=== PATIENT | male | born 1960 | race Caucasian/White ===

== ENCOUNTER → 2022-12-14 | Outpatient (REF) | payer OTHER ==
[~2022-12-14] MED LIST: GLUC1000 OR; GLYB2.5T6 OR; NIAC500T OR; NICO21DI4 TD; PROZ20CA OR; SIMV40TA2 OR; SIMVPOW2 OR; TRIC145T19 OR; ZOCO40TA OR; [UNRECOGNIZED DRUG - OTHER] OR; vitamin B12 PO
[2022-12-14 14:37] LABS: APPEARANCE, URINE MANUAL CLEAR (CLEAR)
[2022-12-14 14:38] LABS: BILIRUBIN, URINE MANUAL NEGATIVE (NEGATIVE); BLOOD URINE MANUAL NEGATIVE (NEGATIVE); COLOR, URINE MANUAL YELLOW (YELLOW); GLUCOSE, URINE (UA) MANUAL 4+(1000 MG/DL) mg/dL (NEGATIVE); KETONE, URINE MANUAL NEGATIVE (NEGATIVE); LEUKOCYTE ESTERASE, URINE MAN NEGATIVE (NEGATIVE); NITRITE, URINE MANUAL NEGATIVE (NEGATIVE); PROTEIN, URINE MANUAL NEGATIVE (NEGATIVE); SPECIFIC GRAVITY,URINE MANUAL 1.015 (1.002-1.035); UROBILINOGEN, URINE MANUAL NORMAL (NORMAL)
== END ==
LOC: M SMT 12:53
PROVIDERS: ATTEND Physician Assistant
DX: R31.21 Asymptomatic microscopic hematuria (principal)

== ENCOUNTER 2022-12-25 22:58 | Inpatient (IN) | payer OTHER ==
[~2022-12-25] VITALS: Ht 176.5 cm; Wt 123.0 kg
[2022-12-26] VITALS (8 sets, daily range): BP systolic 95–154; BP diastolic 54–79
[2022-12-26] MEDS ORDERED: GLUCAGON INJ 1MG VIAL SC PRN ×2 (01:30→11:10)
[2022-12-26] MEDS ORDERED: DEXTROSE 50% 50ML SYRINGE IV PRN ×2 (01:30→11:10)
[2022-12-26] MEDS ORDERED: ALBUTEROL SULFATE 2.5MG/0.5ML INH NEB SOLN NEB PRN (01:30)
[2022-12-26] MEDS ORDERED: NS 1,000 ML IV SCH (01:30)
[2022-12-26] MEDS: IPRATROPIUM 0.5MG/ALBUTEROL 2.5MG INH SOL UD 3ML (DUONEB) NEB SCH ×4 (02:00→19:34)
[2022-12-26] MEDS ORDERED: FENO145T7 PO (02:08)
[2022-12-26] MEDS ORDERED: FLUO20CA22 PO (02:08)
[2022-12-26 02:17] LABS: HEMOGLOBIN 9.1 g/dl (13.5-17.5); MEAN CORPUSCULAR HEMOGLOBIN 23.8 pg (27.0-33.0); MEAN CORPUSCULAR HGB CONC 27.6 g/dl (32.0-36.5); MEAN CORPUSCULAR VOLUME 86.2 fl (80.0-96.0); RED BLOOD COUNT 3.83 10^6/uL (4.30-6.10)
[2022-12-26] MEDS ORDERED: ATEN25TA PO (02:22)
[2022-12-26] MEDS ORDERED: D 1010004 PO (02:22)
[2022-12-26] MEDS ORDERED: POTA-150 PO (02:22)
[2022-12-26] MEDS ORDERED: FOLI1TAB11 PO (02:22)
[2022-12-26] MEDS ORDERED: SYNJ1TAB PO (02:22)
[2022-12-26] MEDS ORDERED: PROM75TA2 PO (02:22)
[2022-12-26] MEDS ORDERED: LORA-674 PO (02:22)
[2022-12-26] MEDS ORDERED: MECL-136 PO (02:22)
[2022-12-26] MEDS ORDERED: OMEP1CAP73 PO (02:22)
[2022-12-26] MEDS ORDERED: MAGN400T35 PO (02:22)
[2022-12-26] MEDS ORDERED: VITMTA PO (02:22)
[2022-12-26] MEDS ORDERED: INSU100I38 INJ (02:22)
[2022-12-26] MEDS ORDERED: VENTAER INH (02:22)
[2022-12-26] MEDS ORDERED: ROSU40TA4 PO (02:22)
[2022-12-26] MEDS ORDERED: RIBO400T PO (02:22)
[2022-12-26] MEDS ORDERED: VITA-158 PO (02:22)
[2022-12-26] MEDS ORDERED: VITATAB73 PO (02:22)
[2022-12-26] MEDS ORDERED: MIRA3350 PO (02:22)
[2022-12-26] MEDS ORDERED: FERR1TAB8 PO (02:22)
[2022-12-26 02:25] LABS: INR 1.04; PROTHROMBIN TIME 13.8 SECONDS (12.5-14.5)
[2022-12-26] MEDS ORDERED: HOME MED LIST COMPLETE! XX SCH (02:25)
[2022-12-26 02:26] LABS: PARTIAL THROMBOPLASTIN TIME 28.5 SECONDS (24.8-34.2)
[2022-12-26 02:35] LABS: PLATELET COUNT, AUTOMATED 53 10^3/uL (150-450)
[2022-12-26] MEDS: LEVEMIR (INSULIN DETEMIR) 1 UNITS/0.01ML SC SCH ×2 (02:43→21:16)
[2022-12-26] MEDS: PANTOPRAZOLE 40MG VIAL IV SCH ×2 (02:43→13:15)
[2022-12-26 03:19] LABS: ALBUMIN 3.5 G/DL (3.2-5.2); ALKALINE PHOSPHATASE 44 U/L (46-116); ALT/SGPT < 9 U/L (7.0-40); AST/SGOT 18 U/L (<34); BILIRUBIN,TOTAL 0.4 MG/DL (0.3-1.2); BLOOD UREA NITROGEN 37 MG/DL (9-23); CALCIUM LEVEL 8.8 MG/DL (8.3-10.6); CARBON DIOXIDE LEVEL 26 MMOL/L (20-31); CHLORIDE LEVEL 103 MMOL/L (98-107); CREATININE FOR GFR 1.45 MG/DL (0.70-1.30); GLOMERULAR FILTRATION RATE 52.7 (>49); GLUCOSE, FASTING 189 MG/DL (74-106); POTASSIUM SERUM 4.3 MMOL/L (3.5-5.1); SODIUM LEVEL 140 MMOL/L (136-145); TOTAL PROTEIN 6.7 G/DL (5.7-8.2)
[2022-12-26] MEDS ORDERED: INSULIN LISPRO (NovoLOG) PER UNIT SC SCH ×2 (06:00→21:00)
[2022-12-26 08:36] LABS: HEMATOCRIT 32.3 % (42.0-52.0); HEMOGLOBIN 8.9 g/dl (13.5-17.5)
[2022-12-26] MEDS ORDERED: FERROUS SULFATE 325MG TAB PO SCH (09:00)
[2022-12-26] MEDS ORDERED: GLUCOSE 4GM CHEW TABLET PO PRN (11:10)
[2022-12-26] MEDS: INSULIN LISPRO (NovoLOG) PER UNIT SC SCH ×2 (13:16→17:27)
[2022-12-26 14:25] LABS: HEMATOCRIT 29.7 % (42.0-52.0); HEMOGLOBIN 8.1 g/dl (13.5-17.5)
[2022-12-26] MEDS: FENOFIBRATE 145MG TABLET (TRICOR) PO SCH (15:24)
[2022-12-26] MEDS: FOLIC ACID 1MG TAB PO SCH (15:24)
[2022-12-26] MEDS: LORATADINE 10 MG TAB PO SCH (15:24)
[2022-12-26] MEDS: FLUoxetine 20MG CAP PO SCH (15:24)
[2022-12-26] MEDS: MECLIZINE 12.5 MG TAB PO SCH ×2 (18:39→21:18)
[2022-12-26] MEDS ORDERED: FUROSEMIDE 40MG/4ML VIAL IV ONE (20:00)
[2022-12-26 20:37] LABS: HEMATOCRIT 29.5 % (42.0-52.0); HEMOGLOBIN 8.1 g/dl (13.5-17.5)
[2022-12-26] MEDS ORDERED: ROSUVASTATIN 10 MG TAB (CRESTOR) PO SCH (21:00)
[2022-12-26] MEDS ORDERED: ATENOLOL 12.5MG PER 1/2 TABLET PO SCH (21:00)
[2022-12-26] MEDS ORDERED: atenoloL 25 MG TAB PO SCH (21:00)
[2022-12-26] MEDS: MAGNESIUM OXIDE 400MG TAB (MAG-OX) PO SCH (21:14)
[2022-12-27 00:49] VITALS: BP 101/56
[2022-12-27 01:35] VITALS: BP 104/56
[2022-12-27] MEDS: IPRATROPIUM 0.5MG/ALBUTEROL 2.5MG INH SOL UD 3ML (DUONEB) NEB SCH ×3 (02:00→13:27)
[2022-12-27] MEDS: PANTOPRAZOLE 40MG VIAL IV SCH ×2 (02:29→13:09)
[2022-12-27 02:35] VITALS: BP 138/80
[2022-12-27 02:37] LABS: HEMOGLOBIN 8.6 g/dl (13.5-17.5)
[2022-12-27 06:00] VITALS: BP 130/62
[2022-12-27 06:55] LABS: BASO % 0.7 % (0.0-1.0); EOS # 0.2 10^3/uL (0.0-0.5); EOS % 3.9 % (0.0-3.0); HEMATOCRIT 30.2 % (42.0-52.0); HEMOGLOBIN 8.4 g/dl (13.5-17.5); LYMPH # 0.6 10^3/uL (1.5-5.0); LYMPH % 14.5 % (24.0-44.0); MEAN CORPUSCULAR HEMOGLOBIN 23.9 pg (27.0-33.0); MEAN CORPUSCULAR HGB CONC 27.8 g/dl (32.0-36.5); MONO # 0.4 10^3/uL (0.0-0.8); MONO % 9.8 % (2.0-8.0); NEUTROPHILS # 3.1 10^3/uL (1.5-8.5); NEUTROPHILS % 70.4 % (36.0-66.0); RED BLOOD COUNT 3.51 10^6/uL (4.30-6.10); WHITE BLOOD COUNT 4.4 10^3/uL (4.0-10.0)
[2022-12-27 06:56] LABS: PLATELET COUNT, AUTOMATED 46 10^3/uL (150-450)
[2022-12-27] MEDS ORDERED: FUROSEMIDE 40MG/4ML VIAL IV ONE (07:05)
[2022-12-27 07:20] LABS: BLOOD UREA NITROGEN 19 MG/DL (9-23); CALCIUM LEVEL 7.9 MG/DL (8.3-10.6); CARBON DIOXIDE LEVEL 29 MMOL/L (20-31); CHLORIDE LEVEL 102 MMOL/L (98-107); CREATININE FOR GFR 1.29 MG/DL (0.70-1.30); GLOMERULAR FILTRATION RATE > 60.0 (>49); GLUCOSE, FASTING 154 MG/DL (74-106); POTASSIUM SERUM 4.2 MMOL/L (3.5-5.1); SODIUM LEVEL 138 MMOL/L (136-145)
[2022-12-27] MEDS: FLUoxetine 20MG CAP PO SCH (08:33)
[2022-12-27] MEDS: MAGNESIUM OXIDE 400MG TAB (MAG-OX) PO SCH (08:34)
[2022-12-27] MEDS: LORATADINE 10 MG TAB PO SCH (08:34)
[2022-12-27] MEDS: FOLIC ACID 1MG TAB PO SCH (08:34)
[2022-12-27] MEDS: FENOFIBRATE 145MG TABLET (TRICOR) PO SCH (08:34)
[2022-12-27] MEDS: INSULIN LISPRO (NovoLOG) PER UNIT SC SCH ×2 (08:34→13:09)
[2022-12-27] MEDS: MECLIZINE 12.5 MG TAB PO SCH (08:34)
[2022-12-27] MEDS: LEVEMIR (INSULIN DETEMIR) 1 UNITS/0.01ML SC SCH (08:35)
[2022-12-27 08:40] LABS: HEMATOCRIT 31.2 % (42.0-52.0); HEMOGLOBIN 8.6 g/dl (13.5-17.5)
[2022-12-27 14:00] VITALS: BP 110/52
[2022-12-27] MEDS ORDERED: AMOX875T2 PO (19:24)
[2022-12-27] MEDS ORDERED: PROBCAP14 PO (19:24)
[2022-12-27] MEDS ORDERED: ATENOLOL 12.5MG PER 1/2 TABLET PO SCH (21:00)
== END 2022-12-27 15:52 | disposition home or self-care (01) | DRG 378 ==
LOC: ENRESERV 23:10 → M MSPAV 12-26 00:40
PROVIDERS: ADMIT Internal Medicine; ATTEND Internal Medicine Nephrology
PROC: 30233N1 Transfusion of Nonautologous Red Blood Cells into Peripheral Vein, Percutaneous Approach (ICD-10-PCS; principal; 2022-12-26)
DX: K92.1 Melena (principal); J96.11 Chronic respiratory failure with hypoxia; D62 Acute posthemorrhagic anemia; D69.6 Thrombocytopenia, unspecified; J44.9 Chronic obstructive pulmonary disease, unspecified; Z99.81 Dependence on supplemental oxygen; D69.1 Qualitative platelet defects; E11.22 Type 2 diabetes mellitus with diabetic chronic kidney disease; Z90.49 Acquired absence of other specified parts of digestive tract; Z87.891 Personal history of nicotine dependence; R04.0 Epistaxis; N18.30 Chronic kidney disease, stage 3 unspecified; Z66 Do not resuscitate; Z79.899 Other long term (current) drug therapy; Z88.6 Allergy status to analgesic agent; Z88.8 Allergy status to other drugs, medicaments and biological substances; E53.8 Deficiency of other specified B group vitamins; E55.9 Vitamin D deficiency, unspecified; E78.5 Hyperlipidemia, unspecified; I49.1 Atrial premature depolarization; E66.01 Morbid (severe) obesity due to excess calories; Z86.003 Personal history of in-situ neoplasm of oral cavity, esophagus and stomach

== ENCOUNTER 2023-03-29 06:42 | Day surgery (SDC) | payer OTHER ==
[~2023-03-29] VITALS: Ht 175.3 cm; Wt 126.6 kg
[~2023-03-29 06:42] MED LIST changes: +AMOX875T2 PO; +ATEN25TA PO; +BSS IRR 500ML/OMIDRIA 4ML IRR BAG (OR ONLY) As Ordered ONE; +CEFUROXIME 1MG/0.1ML INTRACAMERAL INJ As Ordered ONE; +CYCLOPENTOLATE 1% OPHTH SOLN 2ML BTL OS SCH; +D 1010004 PO; +FENO145T7 PO; +FERR1TAB8 PO; +FLUO20CA22 PO; +FOLI1TAB11 PO; +INSU100I38 SC; +LIDOCAINE 1% SDV 5ML VIAL As Ordered ONE; +LORA-674 PO; +MAGN400T35 PO; +MECL-136 PO; +METO50TA7 PO; +MIRA3350 PO; +OFLOXACIN 0.3 % (OCUFLOX) OPTH SOL 5ML OS SCH; +OMEP1CAP73 PO; +PHENYLEPHRINE 2.5% OPHTH SOL 2ML OS SCH; +POTA-150 PO; +PROBCAP14 PO; +PROM75TA2 PO; +PROPARACAINE 0.5% OPHTH SOL 15ML OS ONE; +RIBO400T PO; +ROSU40TA4 PO; +SYNJ1TAB PO; +TROPICAMIDE 1% OPHTH SOLN 15ML OS SCH; +VENTAER INH; +VITA-158 PO; +VITATAB73 PO; +VITMTA PO; +short acting insulin SC
[2023-03-29] MEDS ORDERED: EPINEPHrine INJ 1 MG/ML 1ML AMP As Ordered ONE (08:18)
[2023-03-29] MEDS ORDERED: TOBRADEX OPHTH OINT 3.5 GM As Ordered ONE (08:44)
[2023-03-29] MEDS ORDERED: fentaNYL 100 MCG/2 ML INJECTION As Ordered ONE (08:56)
[2023-03-29] MEDS ORDERED: MIDAZOLAM INJ 2MG/2ML VIAL As Ordered ONE (08:56)
[2023-03-29 09:05] VITALS: BP 141/81
== END 2023-03-29 10:29 | disposition home or self-care (01) ==
LOC: M SDC 06:42
PROVIDERS: ATTEND Ophthalmology
DX: H25.12 Age-related nuclear cataract, left eye (principal); I10 Essential (primary) hypertension; E78.5 Hyperlipidemia, unspecified; E11.9 Type 2 diabetes mellitus without complications; G47.30 Sleep apnea, unspecified; Z87.891 Personal history of nicotine dependence; Z79.899 Other long term (current) drug therapy; Z88.6 Allergy status to analgesic agent
CPT/HCPCS: 66984; J0171; J0697; J1097; J2250; J3010; V2632

== ENCOUNTER → 2023-08-05 | Outpatient (REF) | payer OTHER ==
[~2023-08-05] MED LIST changes: -BSS IRR 500ML/OMIDRIA 4ML IRR BAG (OR ONLY) As Ordered ONE; -CEFUROXIME 1MG/0.1ML INTRACAMERAL INJ As Ordered ONE; -CYCLOPENTOLATE 1% OPHTH SOLN 2ML BTL OS SCH; -LIDOCAINE 1% SDV 5ML VIAL As Ordered ONE; +LORA-1041 PO; -LORA-674 PO; -OFLOXACIN 0.3 % (OCUFLOX) OPTH SOL 5ML OS SCH; -PHENYLEPHRINE 2.5% OPHTH SOL 2ML OS SCH; -PROPARACAINE 0.5% OPHTH SOL 15ML OS ONE; -TROPICAMIDE 1% OPHTH SOLN 15ML OS SCH
[2023-08-05 18:56] LABS: APPEARANCE, URINE HAZY (CLEAR); BACTERIA, URINE AUTO NEGATIVE (NEGATIVE); BILIRUBIN, URINE AUTO NEGATIVE (NEGATIVE); BLOOD, URINE BLOOD NEGATIVE (NEGATIVE); COLOR, URINE YELLOW (YELLOW); GLUCOSE, URINE (UA) AUTO 3+ mg/dL (NEGATIVE); KETONE, URINE AUTO NEGATIVE (NEGATIVE); LEUKOCYTE ESTERASE, URINE AUTO NEGATIVE (NEGATIVE); NITRITE, URINE AUTO NEGATIVE (NEGATIVE); PROTEIN, URINE AUTO NEGATIVE (NEGATIVE); RBC, URINE AUTO 1 /HPF (0-3); SPECIFIC GRAVITY URINE AUTO 1.024 (1.002-1.035); SQUAMOUS EPITHELIAL CELL UR AU 2 /HPF (0-6); UROBILINOGEN, URINE AUTO 0.2 mg/dL (0.0-2.0); WBC, URINE AUTO 1 /HPF (0-3)
== END ==
LOC: M SMT 17:36
PROVIDERS: ATTEND Urology
DX: R31.29 Other microscopic hematuria (principal)

== ENCOUNTER 2023-09-08 11:31 | Emergency (ER) | payer OTHER ==
[~2023-09-08] VITALS: Ht 177.8 cm; Wt 122.9 kg
[2023-09-08 12:26] LABS: BASO % 0.3 % (0.0-1.0); EOS # 0.1 10^3/uL (0.0-0.5); EOS % 2.5 % (0.0-3.0); HEMATOCRIT 31.2 % (42.0-52.0); HEMOGLOBIN 8.5 g/dl (13.5-17.5); LYMPH # 0.7 10^3/uL (1.5-5.0); LYMPH % 20.7 % (24.0-44.0); MEAN CORPUSCULAR HEMOGLOBIN 23.8 pg (27.0-33.0); MEAN CORPUSCULAR HGB CONC 27.2 g/dl (32.0-36.5); MEAN CORPUSCULAR VOLUME 87.4 fl (80.0-96.0); MONO # 0.3 10^3/uL (0.0-0.8); MONO % 8.8 % (2.0-8.0); NEUTROPHILS # 2.4 10^3/uL (1.5-8.5); NEUTROPHILS % 66.9 % (36.0-66.0); RED BLOOD COUNT 3.57 10^6/uL (4.30-6.10); WHITE BLOOD COUNT 3.5 10^3/uL (4.0-10.0)
[2023-09-08 12:30] LABS: PLATELET COUNT, AUTOMATED 50 10^3/uL (150-450)
[2023-09-08 12:58] LABS: BLOOD UREA NITROGEN 18 MG/DL (9-23); CALCIUM LEVEL 8.4 MG/DL (8.3-10.6); CARBON DIOXIDE LEVEL 28 MMOL/L (20-31); CHLORIDE LEVEL 103 MMOL/L (98-107); CREATININE FOR GFR 1.16 MG/DL (0.70-1.30); GLOMERULAR FILTRATION RATE > 60.0 (>49); GLUCOSE, FASTING 110 MG/DL (74-106); POTASSIUM SERUM 4.4 MMOL/L (3.5-5.1); SODIUM LEVEL 140 MMOL/L (136-145)
[2023-09-08 13:33] VITALS: BP 113/61; TEMP 98.3; O2SAT 92
== END 2023-09-08 13:35 | disposition home or self-care (01) ==
LOC: M ED 11:31 → EDBD 11:31 → M ED 13:35
DX: H81.4 Vertigo of central origin (principal); E11.9 Type 2 diabetes mellitus without complications; Z85.028 Personal history of other malignant neoplasm of stomach; Z87.891 Personal history of nicotine dependence; Z88.5 Allergy status to narcotic agent; Z88.6 Allergy status to analgesic agent; Z79.52 Long term (current) use of systemic steroids; Z79.4 Long term (current) use of insulin; Z79.810 Long term (current) use of selective estrogen receptor modulators (SERMs); Z79.899 Other long term (current) drug therapy

== ENCOUNTER 2023-09-30 11:16 | Emergency (ER) | payer OTHER ==
[~2023-09-30] VITALS: Ht 175.3 cm; Wt 120.1 kg
[2023-09-30 12:46] LABS: BASO % 0.4 % (0.0-1.0); EOS # 0.1 10^3/uL (0.0-0.5); EOS % 2.9 % (0.0-3.0); HEMOGLOBIN 8.5 g/dl (13.5-17.5); LYMPH # 0.7 10^3/uL (1.5-5.0); LYMPH % 15.1 % (24.0-44.0); MEAN CORPUSCULAR HEMOGLOBIN 22.8 pg (27.0-33.0); MEAN CORPUSCULAR HGB CONC 27.4 g/dl (32.0-36.5); MEAN CORPUSCULAR VOLUME 83.3 fl (80.0-96.0); MONO # 0.4 10^3/uL (0.0-0.8); MONO % 8.1 % (2.0-8.0); NEUTROPHILS # 3.3 10^3/uL (1.5-8.5); NEUTROPHILS % 72.6 % (36.0-66.0); RED BLOOD COUNT 3.72 10^6/uL (4.30-6.10); WHITE BLOOD COUNT 4.6 10^3/uL (4.0-10.0)
[2023-09-30 12:52] LABS: PLATELET COUNT, AUTOMATED 53 10^3/uL (150-450)
[2023-09-30] MEDS ORDERED: NS 500 ML IV ONE (12:55)
[2023-09-30 12:57] LABS: INR 1.12; PROTHROMBIN TIME 14.1 SECONDS (12.5-14.5)
[2023-09-30 12:58] LABS: PARTIAL THROMBOPLASTIN TIME 33.6 SECONDS (24.8-34.2)
[2023-09-30 13:05] LABS: BLOOD UREA NITROGEN 21 MG/DL (9-23); CALCIUM LEVEL 8.4 MG/DL (8.3-10.6); CARBON DIOXIDE LEVEL 27 MMOL/L (20-31); CHLORIDE LEVEL 102 MMOL/L (98-107); CPK CREATINE PHOSPHOKINASE 22 U/L (46-171); CREATININE FOR GFR 1.15 MG/DL (0.70-1.30); GLOMERULAR FILTRATION RATE > 60.0 (>49); GLUCOSE, FASTING 127 MG/DL (74-106); MAGNESIUM LEVEL 1.8 MG/DL (1.8-2.4); POTASSIUM SERUM 4.2 MMOL/L (3.5-5.1); SODIUM LEVEL 136 MMOL/L (136-145)
[2023-09-30 13:06] LABS: CK-MB VALUE MASS < 1.0 NG/ML (<3.6); MB/CK RELATIVE INDEX 4.54 (< OR =4)
[2023-09-30 13:14] LABS: RSV AMPLIFICATION NEGATIVE (NEGATIVE)
[2023-09-30 13:57] LABS: CK-MB VALUE MASS < 1.0 NG/ML (<3.6)
[2023-09-30 13:58] LABS: CPK CREATINE PHOSPHOKINASE 21 U/L (46-171); MB/CK RELATIVE INDEX 4.76 (< OR =4)
[2023-09-30 15:44] VITALS: BP 124/79; TEMP 97.1; O2SAT 94
== END 2023-09-30 15:54 | disposition home or self-care (01) ==
LOC: EDBD 11:16 → M ED 13:31
DX: I95.9 Hypotension, unspecified (principal); R55 Syncope and collapse; E11.9 Type 2 diabetes mellitus without complications; Z86.73 Personal history of transient ischemic attack (TIA), and cerebral infarction without residual deficits; F43.10 Post-traumatic stress disorder, unspecified; Z88.6 Allergy status to analgesic agent; Z11.52 Encounter for screening for COVID-19; Z79.899 Other long term (current) drug therapy

== ENCOUNTER 2024-03-19 11:47 | Emergency (ER) | payer OTHER ==
[~2024-03-19] VITALS: Ht 175.3 cm; Wt 124.5 kg
[~2024-03-19 11:47] MED LIST changes: -ROSU40TA4 PO; +ROSU40TA63 PO
[2024-03-19 12:34] LABS: BASO % 0.2 % (0.0-1.0); EOS # 0.1 10^3/uL (0.0-0.5); EOS % 2.6 % (0.0-3.0); HEMATOCRIT 33.8 % (42.0-52.0); HEMOGLOBIN 9.2 g/dl (13.5-17.5); LYMPH # 0.6 10^3/uL (1.5-5.0); LYMPH % 14.6 % (24.0-44.0); MEAN CORPUSCULAR HEMOGLOBIN 23.6 pg (27.0-33.0); MEAN CORPUSCULAR HGB CONC 27.2 g/dl (32.0-36.5); MEAN CORPUSCULAR VOLUME 86.7 fl (80.0-96.0); MONO # 0.4 10^3/uL (0.0-0.8); MONO % 9.2 % (2.0-8.0); NEUTROPHILS # 3.1 10^3/uL (1.5-8.5); NEUTROPHILS % 72.7 % (36.0-66.0); WHITE BLOOD COUNT 4.2 10^3/uL (4.0-10.0)
[2024-03-19 12:43] LABS: PLATELET COUNT, AUTOMATED 41 10^3/uL (150-450)
[2024-03-19 13:07] LABS: BLOOD UREA NITROGEN 20 MG/DL (9-23); CALCIUM LEVEL 8.6 MG/DL (8.3-10.6); CARBON DIOXIDE LEVEL 28 MMOL/L (20-31); CHLORIDE LEVEL 104 MMOL/L (98-107); CREATININE FOR GFR 1.18 MG/DL (0.70-1.30); GLOMERULAR FILTRATION RATE > 60.0 (>49); GLUCOSE, FASTING 139 MG/DL (74-106); POTASSIUM SERUM 4.3 MMOL/L (3.5-5.1); SODIUM LEVEL 138 MMOL/L (136-145)
[2024-03-19] MEDS: NS 1,000 ML IV ONE (13:10)
[2024-03-19 14:33] LABS: CK-MB VALUE MASS < 1.0 NG/ML (<3.6); THYROID STIMULATING HORMONE 2.241 uIU/ML (0.55-4.78)
[2024-03-19 14:34] LABS: FREE T4 0.98 NG/DL (0.89-1.76)
[2024-03-19 14:41] LABS: ALBUMIN 2.9 G/DL (3.2-5.2); ALKALINE PHOSPHATASE 50 U/L (46-116); ALT/SGPT < 9 U/L (7.0-40); AST/SGOT 25 U/L (<34); BILIRUBIN,DIRECT 0.1 MG/DL (<0.4); BILIRUBIN,TOTAL 0.3 MG/DL (0.3-1.2); CPK CREATINE PHOSPHOKINASE 42 U/L (46-171); MB/CK RELATIVE INDEX 2.38 (< OR =4); TOTAL PROTEIN 6.6 G/DL (5.7-8.2)
[2024-03-19 15:30] VITALS: BP 113/57; TEMP 98.6; O2SAT 94
== END 2024-03-19 15:52 | disposition home or self-care (01) ==
LOC: M ED 11:47 → EDBD 11:47 → M ED 15:52
DX: I95.1 Orthostatic hypotension (principal); Z85.028 Personal history of other malignant neoplasm of stomach; J44.9 Chronic obstructive pulmonary disease, unspecified; E11.9 Type 2 diabetes mellitus without complications; Z87.891 Personal history of nicotine dependence; Z79.4 Long term (current) use of insulin; Z79.899 Other long term (current) drug therapy; Z88.8 Allergy status to other drugs, medicaments and biological substances; Z88.6 Allergy status to analgesic agent

== ENCOUNTER 2024-04-27 16:07 | Emergency (ER) | payer OTHER ==
[~2024-04-27] VITALS: Ht 175.3 cm; Wt 118.2 kg
[~2024-04-27 16:07] MED LIST changes: +FLUO-365 PO; -FLUO20CA22 PO
[2024-04-27 17:45] LABS: BASO % 0.5 % (0.0-1.0); EOS # 0.1 10^3/uL (0.0-0.5); EOS % 1.8 % (0.0-3.0); HEMATOCRIT 31.6 % (42.0-52.0); HEMOGLOBIN 8.5 g/dl (13.5-17.5); LYMPH # 0.5 10^3/uL (1.5-5.0); LYMPH % 12.3 % (24.0-44.0); MEAN CORPUSCULAR HEMOGLOBIN 22.6 pg (27.0-33.0); MEAN CORPUSCULAR HGB CONC 26.9 g/dl (32.0-36.5); MONO # 0.3 10^3/uL (0.0-0.8); NEUTROPHILS # 3.1 10^3/uL (1.5-8.5); NEUTROPHILS % 76.9 % (36.0-66.0); RED BLOOD COUNT 3.76 10^6/uL (4.30-6.10)
[2024-04-27 17:56] LABS: INR 1.08; PARTIAL THROMBOPLASTIN TIME 28.3 SECONDS (24.8-34.2); PROTHROMBIN TIME 13.7 SECONDS (12.5-14.5)
[2024-04-27] MEDS: NS 500 ML IV ONE (18:06)
[2024-04-27 18:09] LABS: PLATELET COUNT, AUTOMATED 36 10^3/uL (150-450)
[2024-04-27 18:13] LABS: CPK CREATINE PHOSPHOKINASE 32 U/L (46-171)
[2024-04-27 18:14] LABS: ALBUMIN 3.5 G/DL (3.2-5.2); ALKALINE PHOSPHATASE 52 U/L (46-116); ALT/SGPT < 9 U/L (7.0-40); AST/SGOT 21 U/L (<34); BILIRUBIN,DIRECT 0.2 MG/DL (<0.4); BILIRUBIN,TOTAL 0.4 MG/DL (0.3-1.2); BLOOD UREA NITROGEN 23 MG/DL (9-23); CALCIUM LEVEL 8.3 MG/DL (8.3-10.6); CARBON DIOXIDE LEVEL 31 MMOL/L (20-31); CHLORIDE LEVEL 99 MMOL/L (98-107); CK-MB VALUE MASS < 1.0 NG/ML (<3.6); CREATININE FOR GFR 1.47 MG/DL (0.70-1.30); GLOMERULAR FILTRATION RATE 51.7 (>49); GLUCOSE, FASTING 85 MG/DL (74-106); MB/CK RELATIVE INDEX 3.12 (< OR =4); POTASSIUM SERUM 4.1 MMOL/L (3.5-5.1); SODIUM LEVEL 135 MMOL/L (136-145); TOTAL PROTEIN 7.2 G/DL (5.7-8.2)
[2024-04-27 18:15] LABS: THYROID STIMULATING HORMONE 2.536 uIU/ML (0.55-4.78)
[2024-04-27 18:16] LABS: FREE T4 1.09 NG/DL (0.89-1.76)
[2024-04-27 19:09] VITALS: TEMP 97.4
[2024-04-27 19:45] VITALS: BP 114/60; O2SAT 97
[2024-04-27 20:18] LABS: CK-MB VALUE MASS < 1.0 NG/ML (<3.6)
[2024-04-27 20:20] LABS: CPK CREATINE PHOSPHOKINASE 38 U/L (46-171); MB/CK RELATIVE INDEX 2.63 (< OR =4)
== END 2024-04-27 20:50 | disposition home or self-care (01) ==
LOC: M ED 16:07
DX: I95.9 Hypotension, unspecified (principal); E86.0 Dehydration; R19.5 Other fecal abnormalities; I48.91 Unspecified atrial fibrillation; E11.9 Type 2 diabetes mellitus without complications; F43.10 Post-traumatic stress disorder, unspecified; Z86.73 Personal history of transient ischemic attack (TIA), and cerebral infarction without residual deficits; E55.9 Vitamin D deficiency, unspecified; D69.1 Qualitative platelet defects; Z79.4 Long term (current) use of insulin; Z79.899 Other long term (current) drug therapy; Z88.6 Allergy status to analgesic agent; Z88.8 Allergy status to other drugs, medicaments and biological substances

== ENCOUNTER 2025-01-16 11:10 | Emergency (ER) | payer OTHER ==
[~2025-01-16] VITALS: Ht 177.8 cm; Wt 121.4 kg
[~2025-01-16 11:10] MED LIST changes: -ROSU40TA63 PO; +ROSU40TA81 PO
[2025-01-16 11:56] LABS: BASO % 0.6 % (0.0-1.0); EOS # 0.1 10^3/uL (0.0-0.5); EOS % 1.8 % (0.0-3.0); HEMATOCRIT 42.4 % (42.0-52.0); HEMOGLOBIN 12.3 g/dl (13.5-17.5); LYMPH # 0.8 10^3/uL (1.5-5.0); LYMPH % 10.9 % (24.0-44.0); MEAN CORPUSCULAR VOLUME 86.2 fl (80.0-96.0); MONO # 0.7 10^3/uL (0.0-0.8); MONO % 9.2 % (2.0-8.0); NEUTROPHILS # 5.4 10^3/uL (1.5-8.5); NEUTROPHILS % 76.9 % (36.0-66.0); RED BLOOD COUNT 4.92 10^6/uL (4.30-6.10)
[2025-01-16 11:58] LABS: PLATELET COUNT, AUTOMATED 55 10^3/uL (150-450)
[2025-01-16 12:12] LABS: CPK CREATINE PHOSPHOKINASE 57 U/L (46-171)
[2025-01-16 12:13] LABS: BLOOD UREA NITROGEN 24 MG/DL (9-23); CALCIUM LEVEL 8.9 MG/DL (8.3-10.6); CARBON DIOXIDE LEVEL 26 MMOL/L (20-31); CHLORIDE LEVEL 103 MMOL/L (98-107); CK-MB VALUE MASS < 1.0 NG/ML (<3.6); CREATININE FOR GFR 1.19 MG/DL (0.70-1.30); GLOMERULAR FILTRATION RATE > 60.0 (>49); GLUCOSE, FASTING 135 MG/DL (74-106); MB/CK RELATIVE INDEX 1.75 (< OR =4); POTASSIUM SERUM 4.5 MMOL/L (3.5-5.1); SODIUM LEVEL 138 MMOL/L (136-145)
[2025-01-16 12:16] LABS: THYROID STIMULATING HORMONE 3.193 uIU/ML (0.55-4.78)
[2025-01-16 14:03] LABS: ETHYL ALCOHOL (ETHANOL) 0.007 % (0.000-0.010)
[2025-01-16 14:04] LABS: ALBUMIN 3.5 G/DL (3.2-5.2); ALKALINE PHOSPHATASE 58 U/L (40-129); ALT/SGPT 11 U/L (7.0-40); AST/SGOT 16 U/L (<34); BILIRUBIN,DIRECT 0.1 MG/DL (<0.4); BILIRUBIN,TOTAL 0.4 MG/DL (0.3-1.2); SALICYLATE LEVEL < 3.0 MG/DL (<30); TOTAL PROTEIN 7.3 G/DL (5.7-8.2)
[2025-01-16 14:08] LABS: APPEARANCE, URINE CLOUDY (CLEAR); BACTERIA, URINE AUTO 1+ (NEGATIVE); BILIRUBIN, URINE AUTO NEGATIVE (NEGATIVE); BLOOD, URINE BLOOD NEGATIVE (NEGATIVE); COLOR, URINE AMBER (YELLOW); GLUCOSE, URINE (UA) AUTO 3+ mg/dL (NEGATIVE); KETONE, URINE AUTO NEGATIVE (NEGATIVE); LEUKOCYTE ESTERASE, URINE AUTO 3+ (NEGATIVE); NITRITE, URINE AUTO NEGATIVE (NEGATIVE); PROTEIN, URINE AUTO 1+ mg/dL (NEGATIVE); RBC, URINE AUTO 5 /HPF (0-3); SPECIFIC GRAVITY URINE AUTO 1.018 (1.002-1.035); SQUAMOUS EPITHELIAL CELL UR AU 0 /HPF (0-6); UROBILINOGEN, URINE AUTO 0.2 mg/dL (0.0-2.0); WBC, URINE AUTO 124 /HPF (0-3); YEAST LIKE CELL URINE AUTO SMALL
[2025-01-16 14:25] LABS: AMPHETAMINES LEVEL URINE NEGATIVE (NEGATIVE); BARBITURATES URINE NEGATIVE (NEGATIVE); BENZODIAZEPINES URINE NEGATIVE (NEGATIVE); CANNABINOIDS URINE NEGATIVE (NEGATIVE); COCAINE METABOLITE URINE NEGATIVE (NEGATIVE); METHADONE URINE NEGATIVE (NEGATIVE); OPIATES URINE NEGATIVE (NEGATIVE); PHENCYCLIDINE URINE NEGATIVE (NEGATIVE)
[2025-01-16] MEDS ORDERED: MULT-40 PO (15:02)
[2025-01-16] MEDS ORDERED: [UNRECOGNIZED DRUG - CODE] SQ (15:02)
[2025-01-16] MEDS ORDERED: INSUH10VL SC (15:02)
[2025-01-16] MEDS ORDERED: HOME MED LIST COMPLETE! XX SCH (15:05)
[2025-01-16 15:45] VITALS: BP 103/55; O2SAT 95
[2025-01-16 16:03] VITALS: TEMP 97.8
== END 2025-01-16 16:15 | disposition home or self-care (01) ==
LOC: M ED 11:10 → EDBD 11:10 → M ED 16:15
DX: R55 Syncope and collapse (principal); E11.9 Type 2 diabetes mellitus without complications; G40.909 Epilepsy, unspecified, not intractable, without status epilepticus; J44.9 Chronic obstructive pulmonary disease, unspecified; F32.A Depression, unspecified; F43.10 Post-traumatic stress disorder, unspecified; E78.5 Hyperlipidemia, unspecified; D69.1 Qualitative platelet defects; Z87.891 Personal history of nicotine dependence; Z79.899 Other long term (current) drug therapy; Z88.6 Allergy status to analgesic agent; Z88.8 Allergy status to other drugs, medicaments and biological substances